=== PATIENT | male | born 1960 | race Hispanic/Latino ===

== ENCOUNTER 2024-06-29 08:57 | Emergency (ER) | payer MEDICARE, SELFPAY ==
--- NOTE | ~2024-06-29 | CT_ITS ---
CT abd pelvis lumbar wo con Ordering provider: Radha Martin PA-C History: 64 years Male with . sylvester flank pain, r/o stone . Comparison: None. Technique: CT abdomen and pelvis without IV and without oral contrast. Automated exposure control and iterative reconstruction technique were employed. The dose-length product was 1053.42 mGy-cm. Findings: VISUALIZED LOWER CHEST: Dependent atelectatic changes. UPPER ABDOMINAL ORGANS: Liver: Normal. Gallbladder: Normal. Spleen: Normal. Stomach/duodenum: Normal. Pancreas: Normal. Adrenals: Normal. Kidneys: Normal. PELVIC ORGANS: The bladder is normal. Enlarged prostate with calcifications. BOWEL AND MESENTERY: Colon: No evidence of diverticulitis. Fecal material is seen in the right side of the colon. Normal a ppendix. Small Bowel: Normal. No obstruction. Peritoneum/mesentery: No free air or free fluid. No mesenteric lymphadenopathy. Calcification seen an terior to the urinary bladder which may be a lymph nodes RETROPERITONEUM: Mild atheromatous disease of the abdominal aorta. No retroperitoneal lymphadenopat hy. MUSCULOSKELETAL: Superficial soft tissues: The superficial soft tissues are normal. Bones: Hypodensity in the left intertrochanteric area most likely a cyst. Follow-up advised. Hemangio ma T 10. Age appropriate degenerative changes of the spine. Bilateral sacroiliacs. IMPRESSION: 1. No evidence of appendicitis, diverticulitis or intestinal. CT abd pelvis lumbar wo con Ordering provider: Radha Martin PA-C History: 64 years Male with . sylvester flank pain, r/o stone . Comparison: None. Technique: CT lumbar spine without contrast. Automated exposure control and iterative reconstruction technique were employed. The dose-length product was 1053.42 mGy-cm. FINDINGS: VERTEBRAE: Loss of anterior height of T12 and L1 most likely chronic. Otherwise, Normal height and al ignment. No subluxation or visible acute fracture. Degenerative changes of the spine. DISC SPACES: Well maintained. T12-L1: No stenosis. L1-L2: No stenosis. L2-L3: No stenosis. L3-L4: Mild spinal canal stenosis secondary to broad based disc bulge, facet arthropathy, and ligamen eh flavum hypertrophy. Narrowing of the foramina with root compression. L4-L5: Mild spinal canal stenosis secondary to broad based disc bulge, facet arthropathy, and ligame ntum flavum hypertrophy. Bilateral narrowing of the foramina with root compression. Bilateral facet j oint disease. L5-S1: No stenosis. PARASPINOUS SOFT TISSUES: Mild atheromatous disease of the abdominal aorta. Bilateral sacroiliitis. IMPRESSION: No evidence of acute osseous abnormality. Reviewed, dictated and finalized at location A. IMPRESSION: 1. No evidence of appendicitis, diverticulitis or intestinal. CT abd pelvis lumbar wo con Ordering provider: Radha Martin PA-C History: 64 years Male with . sylvester flank pain, r/o stone . Comparison: None. Technique: CT lumbar spine without contrast. Automated exposure control and it erative reconstruction technique were employed. The dose-length product was 105 3.42 mGy-cm. FINDINGS: VERTEBRAE: Loss of anterior height of T12 and L1 most likely chronic. Otherwise , Normal height and alignment. No subluxation or visible acute fracture. Degene rative changes of the spine. DISC SPACES: Well maintained. T12-L1: No stenosis. L1-L2: No stenosis. L2-L3: No stenosis. L3-L4: Mild spinal canal stenosis secondary to broad based disc bulge, facet ar thropathy, and ligamentum flavum hypertrophy. Narrowing of the foramina with ro ot compression. L4-L5: Mild spinal canal stenosis secondary to broad based disc bulge, facet a rthropathy, and ligamentum flavum hypertrophy. Bilateral narrowing of the dilip geena with root compression. Bilateral facet joint disease. L5-S1: No stenosis. PARASPINOUS SOFT TISSUES: Mild atheromatous disease of the abdominal aorta. Bilateral sacroiliitis.
[2024-06-29 09:21] VITALS: BP 123/61; PULSE 50; RESP 16; TEMP 36.3; O2SAT 100
--- NOTE | 2024-06-29 10:57 | ED.BACK ---
HPI - Back Pain/Injury General Chief Complaint: Back Pain/Injury Stated Complaint: BACK PAIN Time Seen by Provider: 06/29/24 10:46 Source: patient and family Mode of arrival: ambulatory Limitations: no limitations and language barrier History of Present Illness HPI Narrative: Patient is a 64-year-old male who presents the ED with report of low back pain. Patient is primarily Ecuadorean-speaking. Daughter at bedside assisted in translation. 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 He has since developed pain throughout his low back since then, worse on the R side, occasionally radiates down his RLE. Worse with movement. Has been taking Tylenol and Ibuprofen at home w/o much improvement. denies radiation of pain into scrotum or abdomen. Denies numbness or weakness of lower extremity, saddle anesthesia, bowel or bladder incontinence. Related Data Allergies Allergy/AdvReac Type Severity Reaction Status Date / Time No Known Allergies Allergy Verified 06/29/24 09:02 Review of Systems Review of Systems: All systems reviewed & are unremarkable except as noted in HPI. All systems reviewed & are unremarkable except as noted in HPI and below Exam Narrative: GENERAL: Well appearing, obese with BMI of 36.3, non-toxic, in mild acute distress due to pain. HEAD: Normocephalic, atraumatic. RESPIRATORY: Airway patent, respirations nonlabored. Clear to auscultation bilaterally, no rales, rhonchi, wheezing. CARDIOVASCULAR: Bradycardia with regular rhythm without murmurs, rubs, or gallops. ABDOMINAL: Soft, no tenderness throughout abdomen, nondistended. Normoactive BS. MUSCULOSKELETAL: Moves all extremities. No gross deformities. Tenderness to palpation throughout lower midline lumbar spine extending into right paraspinal musculature/R SI region. Sensation intact. No palpable deformities. SKIN: Warm, dry, normal color. NEURO: A&O X3. Speech clear. Cranial nerves II-XII grossly intact. Steady gait. No ataxic movements. PSYCHIATRIC: Appropriate mood and affect. Normal interaction. Course Vital Signs Vital signs: Vital Signs Temperature 97.4 F L 06/29/24 09:21 Pulse Rate 50 L 06/29/24 09:21 Respiratory Rate 16 06/29/24 09:21 Blood Pressure 123/61 06/29/24 09:21 Pulse Oximetry 100 06/29/24 09:21 Oxygen Delivery Room Air 06/29/24 09:21 Temperature 97.4 F L 06/29/24 09:21 Pulse Rate 47 L 06/29/24 14:20 Respiratory Rate 16 06/29/24 14:20 Blood Pressure 107/82 06/29/24 14:20 Pulse Oximetry 100 06/29/24 14:20 Oxygen Delivery Room Air 06/29/24 09:21 MDM - Back Pain/Injury MDM Narrative Medical decision making narrative: Patient?s pain is positional and localized to paraspinal muscles without signs of cord compression or cauda equina. Normal neurologic exams. No red flag symptoms. No fever noted and no significant risk factors for osteomyelitis or spinal epidural abscess. No symptoms or signs to suggest pain is referred from abdominal or source. CT scan of abdomen/ pelvis /lumbar spine without acute abnormalities. No fracture. No intra-abdominal findings. Suspect musculoskeletal etiology. Patient is feeling much better with supportive therapy in the ED. Patient ambulates with a steady gait and is felt to be a reasonable candidate for continued outpatient management. will prescribe lidocaine patches/muscle relaxers for home use, advised to continue Tylenol/ibuprofen. Patient was noted to be bradycardic in the ED. Initial heart rate upon arrival was in the 50s. Patient did janusz down to 37 at its lowest point. EKG was obtained and showing sinus bradycardia. No evidence of heart block. Patient is asymptomatic with this. He denies ever being told his heart rate has been low. He was seen by his primary care doctor 1 month ago at which point he states everything was normal. He denies any dizziness, lightheadedness, chest pain, shortness of breath, vision changes, near syncopal or syncopal episodes. He is not on any beta-blockers. Discussed case with patient's PCP's office nurse, will f/u with patient within the next 2 weeks. Discussed case with Mariana Ortiz NP Cardiology, will call patient to make close f/u appointment. Recommended to check TSH. Basic laboratory studies were obtained and unremarkable. Minimal anemia. Stable electrolytes and magnesium. TSH is within normal limits. Patient was ambulated throughout the ED and heart rate did increase some with exertion. He continued to be asymptomatic while ambulating. No dizziness, lightheadedness, near syncope. He was given strict return precautions regarding back pain and bradycardia. He is in agreement with plan and voiced understanding of all return precautions. Discharged in stable condition. Medical Records Attestation: I reviewed the patient's medical records. Lab Data Attestation: I reviewed the patient's lab results. 06/29/24 12:56 06/29/24 12:56 Labs: Lab Results 06/29/24 Range/Units 12:56 WBC 9.6 (4.5-10.0) K/mm3 RBC 4.02 L (4.6-6.20) M/mm3 Hgb 12.1 L (14.0-18.0) g/dL Hct 35.9 L (42.0-52.0) % MCV 89.3 (80-100) fl MCH 30.1 (26-34) pg MCHC 33.7 (32-36) g/dl RDW 14.4 (11.5-14.5) % Plt Count 220 (150-375) k/mm3 MPV 11.1 H (7.4-10.4) fl Immature Gran % (Auto) 0.3 (0-0.5) % Neut % (Auto) 70.5 (45.5-73.1) % Lymph % (Auto) 24.3 (18.3-44.2) % [place] % (Auto) 4.0 (2.6-8.5) % Eos % (Auto) 0.7 (0-4.4) % Baso % (Auto) 0.2 (0.2-1.2) % Lymph # (Auto) 2.34 (0.9-3.2) K/mm3 [place] # (Auto) 0.4 (0.1-0.6) K/mm3 Eos # (Auto) 0.1 (0-0.3) K/mm3 Baso # (Auto) 0.0 (0.0-0.1) K/mm3 Abs Immat Gran (auto) 0.03 (0.00-0.031) K/mm3 Absolute Neuts (auto) 6.8 H (1.3-6.7) K/mm3 Absolute Nucleated RBC 0.000 (0.0-0.012) K/mm3 Nucleated RBC % 0.0 (0.0-0.2) % Sodium 138 (137-145) mmol/L Potassium 4.0 (3.4-5.0) mmol/L Chloride 106 (98-107) mmol/L Carbon Dioxide 22 (22-30) mmol/L Anion Gap 10 (4-12) mmol/L BUN 18 (9-20) mg/dL Creatinine 0.80 (0.7-1.3) mg/dL Estim Creat Clear Calc 88 ml/min Estimated GFR > 60 (59 - ) Glucose 108 (65-110) mg/dL Calcium 9.3 (8.4-10.2) mg/dL Magnesium 2.0 (1.6-2.3) mg/dL Total Bilirubin 0.3 (0.2-1.3) mg/dL AST 23 (17-59) U/L ALT 22 (6-50) U/L Alkaline Phosphatase 61 (38-126) U/L Total Protein 8.0 (6.3-8.2) g/dL Albumin 4.6 (3.5-5.1) g/dL TSH 0.794 (0.465-4.680) uIU/mL Imaging Data Attestation: I personally reviewed and interpreted this imaging study as follows: Radiologist's impression: ITS Impressions Miscellaneous CT Procedure 06/29/24 11:47 IMPRESSION: 1. No evidence of appendicitis, diverticulitis or intestinal. CT abd pelvis lumbar wo con Ordering provider: Radha Martin PA-C History: 64 years Male with . sylvester flank pain, r/o stone . Comparison: None. Technique: CT lumbar spine without contrast. Automated exposure control and iterative reconstruction technique were employed. The dose-length product was 1053.42 mGy-cm. FINDINGS: VERTEBRAE: Loss of anterior height of T12 and L1 most likely chronic. Otherwise, Normal height and alignment. No subluxation or visible acute fracture. Degenerative changes of the spine. DISC SPACES: Well maintained. T12-L1: No stenosis. L1-L2: No stenosis. L2-L3: No stenosis. L3-L4: Mild spinal canal stenosis secondary to broad based disc bulge, facet arthropathy, and ligamentum flavum hypertrophy. Narrowing of the foramina with root compression. L4-L5: Mild spinal canal stenosis secondary to broad based disc bulge, facet arthropathy, and ligamentum flavum hypertrophy. Bilateral narrowing of the foramina with root compression. Bilateral facet joint disease. L5-S1: No stenosis. PARASPINOUS SOFT TISSUES: Mild atheromatous disease of the abdominal aorta. Bilateral sacroiliitis. IMPRESSION: No evidence of acute osseous abnormality. ECG Data EKG #1: Attestation: I personally reviewed and interpreted this ECG as follows: ECG completion date: 06/29/24 ECG completion time: 11:29 EKG Interpretation: bradycardia (37), sinus rhythm, non-specific ST changes and other ([place] 207) Discharge Plan Discharge Clinical Impression: Bradycardia Strain of lumbar region Qualifiers: Encounter type: initial encounter Qualified Code(s): S39.012A - Strain of muscle, fascia and tendon of lower back, initial encounter Patient Disposition: Home, Self-Care Condition: Stable Instructions: Antibiotic Form, Acute Low Back Pain (ED), Bradycardia (ED), Lower Back Exercises (ED) Additional Instructions: Continue Tylenol and Ibuprofen as needed for pain. You may use ice/heat, lidocaine patches to area of pain. Take muscle relaxers as needed and prescribed. Recommend taking these at night as they may cause sedation. Do not drive, operate heavy machinery, drink alcohol while on muscle relaxers as this may cause further sedation. Return to the ED if you experience worsening or severe pain, recurrent injury, numbness in groin or legs, going to the bathroom without meaning to, unable to keep down food or drink, or any other symptoms of concern. Your heart rate was found to be low today. Call your primary care doctor today to make close follow-up appointment for this. Also recommend follow-up with Cardiology. Their office should be contacting you to make an appointment. If you do not hear from them within the next couple of days, contact their office yourself. Return to the ED if you experience dizziness, lightheadedness, passing out, vision changes, chest pain, shortness of breath. Prescriptions: New lidocaine 5 % adhesive patch,medicated 1 patch topical DAILY Qty: 15 0RF Rx Instructions: leave on most painful area for up to 12 hrs cyclobenzaprine 5 mg tablet 5 mg PO TID PRN (Reason: muscle spasm) Qty: 15 0RF Follow-up/Referrals: Priscilla,ROCÍO Reina [Primary Care Provider] - Rinku Gonzalez MD [Physician] - (CARDIOLOGY) Time of Disposition: 14:04
[2024-06-29] MEDS: ACETAMINOPHEN 500 MG TABLET 1000 MG PO (11:16)
[2024-06-29] MEDS: KETOROLAC (*BKC) 60 MG/2 ML VIAL IM (11:16)
[2024-06-29] MEDS: methylPREDNISolone SOD SUCC 125 MG VIAL IM (11:16)
--- NOTE | 2024-06-29 11:24 | ECG_ITS ---
Test Date: 2024-06-29 11:29:03 Measurements Intervals [place] Rate: 37 P: 55 PA: 207 QRS: 23 QRSD: 114 T: 12 QT: 442 QTc: 348 Interpretive Statements SLOW SINUS BRADYCARDIA BORDERLINE AV CONDUCTION DELAY INTRAVENTRICULAR CONDUCTION DELAY MINIMAL Q WAVES- HIGH LATERAL LEADS ABNORMAL ECG No previous ECG available for comparison Electronically Signed On 06-29-2024 11:30:43 CDT by Cheng Gerber D.O.
[2024-06-29 11:29] VITALS: BP 110/63; PULSE 37; RESP 16; O2SAT 100
--- NOTE | 2024-06-29 11:42 | PC.NURSE ---
Md Almanza notified of pt bradycardia. EKG completed. Pt is asymptomatic. Daughter at bedside reports no cardiac history. Muscle relaxer held at this time.
[2024-06-29 12:30] VITALS: PULSE 42; RESP 16; O2SAT 100
--- NOTE | 2024-06-29 12:37 | PC.NURSE ---
HR 42 at rest, HR 50 with ambulation. 02 remained 100%.
[2024-06-29 12:40] VITALS: PULSE 50; RESP 16; O2SAT 100
[2024-06-29 13:02] LABS: Basophils Percent Auto 0.2 % (0.2-1.2); Eosinophils Absolute Auto 0.1 K/mm3 (0-0.3); Eosinophils Percent Auto 0.7 % (0-4.4); Hematocrit 35.9 % (42.0-52.0); Hemoglobin 12.1 g/dL (14.0-18.0); Immature Granulocyte Absolute 0.03 K/mm3 (0.00-0.031); Immature Granulocyte Percent A 0.3 % (0-0.5); Lymphocytes Absolute Auto 2.34 K/mm3 (0.9-3.2); Lymphocytes Percent Auto 24.3 % (18.3-44.2); Mean Corpuscular HGB Conc 33.7 g/dl (32-36); Mean Corpuscular Hemoglobin 30.1 pg (26-34); Mean Corpuscular Volume 89.3 fl (80-100); Mean Platelet Volume 11.1 fl (7.4-10.4); Monocytes Absolute Auto 0.4 K/mm3 (0.1-0.6); Neutrophils Absolute Auto 6.8 K/mm3 (1.3-6.7); Neutrophils Percent Auto 70.5 % (45.5-73.1); Platelet Count Result 220 k/mm3 (150-375); Red Blood Count 4.02 M/mm3 (4.6-6.20); Red Cell Distribution Width 14.4 % (11.5-14.5); White Blood Count 9.6 K/mm3 (4.5-10.0)
[2024-06-29 13:18] LABS: Alanine Aminotransferase 22 U/L (6-50); Albumin Level 4.6 g/dL (3.5-5.1); Alkaline Phosphatase 61 U/L (38-126); Anion Gap 10 mmol/L (4-12); Aspartate Amino Transferase 23 U/L (17-59); Bilirubin,Total 0.3 mg/dL (0.2-1.3); Blood Urea Nitrogen 18 mg/dL (9-20); Calcium 9.3 mg/dL (8.4-10.2); Carbon Dioxide 22 mmol/L (22-30); Chloride 106 mmol/L (98-107); Estimated CRCL calculation 88 ml/min; Estimated Glomerular Filt Rate > 60; Glucose 108 mg/dL (65-110); Sodium 138 mmol/L (137-145)
[2024-06-29 13:48] LABS: Thyroid Stimulating Hormone 0.794 uIU/mL (0.465-4.680)
[2024-06-29 14:20] VITALS: BP 107/82; PULSE 47; RESP 16; O2SAT 100
== END 2024-06-29 14:28 | disposition home or self-care (01) ==
PROVIDERS: Emergency Provider Physician Assistant; PCP Registered Nurse
DX: S39.012A Strain of muscle, fascia and tendon of lower back, initial encounter (principal); R00.1 Bradycardia, unspecified; X58.XXXA Exposure to other specified factors, initial encounter
CPT/HCPCS: 36415; 72131; 74176; 80053; 83735; 84443; 85025; 93005; 96372; 99284; A9270; J1885; J2919

== ENCOUNTER 2025-03-29 08:21 | Outpatient (CLI) | payer MEDICARE, SELFPAY ==
--- NOTE | ~2025-03-29 | XR_ITS ---
EXAM/PROCEDURE: XR chest 2V - 03/29/2025 8:28 CDT HISTORY: 65 years old Male with Asymptomatic bradycardia TECHNIQUE: Two view(s) of the chest. COMPARISON: None available. FINDINGS: LUNGS/ PLEURA: No focal consolidation. No appreciable pneumothorax or large pleural effusion. HEART/ MEDIASTINUM: Heart appears normal in size. BONES: No acute osseous abnormality. OTHER: Visualized upper abdomen is unremarkable. IMPRESSION: No acute process. Reviewed, dictated and finalized at location A. IMPRESSION: No acute process.
== END 2025-03-29 08:22 | disposition home or self-care (01) ==
LOC: MICIMG 08:25
PROVIDERS: PCP Registered Nurse; Visit Provider Registered Nurse
DX: R00.1 Bradycardia, unspecified (principal)
CPT/HCPCS: 71046

== ENCOUNTER 2025-03-29 08:52 | Outpatient (CLI) | payer MEDICARE, SELFPAY ==
--- NOTE | 2025-03-29 | ECG_ITS ---
Test Date: 2025-03-29 09:12:13 Measurements Intervals [place] Rate: 50 P: 50 MO: 196 QRS: 36 QRSD: 95 T: 38 QT: 417 QTc: 382 Interpretive Statements SINUS BRADYCARDIA MINIMAL Q WAVES- HIGH LATERAL LEADS BORDERLINE ECG Compared to ECG 06/29/2024 11:29:03 HEART RATE HAS INCCREASED Electronically Signed On 03-29-2025 09:18:02 CDT by Cheng Gerber D.O.
== END 2025-03-29 08:53 | disposition home or self-care (01) ==
LOC: ANHCARD 08:57
PROVIDERS: PCP Registered Nurse; Visit Provider Registered Nurse
DX: R00.1 Bradycardia, unspecified (principal)
CPT/HCPCS: 93005; 99213; G0463

== ENCOUNTER 2025-03-29 09:32 | Emergency (ER) | payer MEDICARE, SELFPAY ==
--- NOTE | 2025-03-29 09:38 | ED.EYEPROB ---
HPI - Eye Problem General Chief complaint: Eye Problems Stated complaint: Swollen Left Eye Source: patient Mode of arrival: ambulatory Limitations: no limitations History of Present Illness HPI Narrative: Patient is a 65 year old male who presents to the clinic with complaints of his left eyelid being swollen x 4 days. He had tried to use warm compresses and over the counter eye medication, but has had minimal relief. Denies any vision changes, eye injury, foreign body sensation, fevers, body aches, nausea, shortness of breath. Related Data Home Medications ?Medication ?Instructions ?Recorded ?Confirmed ?Last Taken ?Type fenofibrate nanocrystallized 145 mg PO 03/29/25 Unknown History mg tablet finasteride 5 mg tablet mg 03/29/25 Unknown History gabapentin 300 mg capsule mg 03/29/25 Unknown History losartan 50 mg-hydrochlorothiazide tablet 03/29/25 Unknown History 12.5 mg tablet metformin 500 mg tablet mg 03/29/25 Unknown History pravastatin 80 mg tablet mg 03/29/25 Unknown History tamsulosin 0.4 mg capsule mg PO 03/29/25 Unknown History Allergies Allergy/AdvReac Type Severity Reaction Status Date / Time No Known Allergies Allergy Verified 03/29/25 09:44 Review of Systems Review of Systems: CONSTITUTIONAL: Denies body aches, fever, chills EYES: Endorses swelling, redness, and pain to L eyelid; No? FB sensation or photophobia.?Denies visual changes. ENT: Denies rhinorrhea, congestion, sore throat, or otalgia. CARDIOVASCULAR: Denies chest pain, palpitations RESPIRATORY: Denies cough or dyspnea. GASTROINTESTINAL: Denies abdominal pain, nausea, vomiting, or diarrhea. SKIN: Denies rash, itching, or wounds. MUSCULOSKELETAL: Denies back pain, joint pain, or myalgia. NEUROLOGIC: Denies headache, numbness, tingling, or weakness. All systems reviewed & are unremarkable except as noted in HPI and below PMFSH Comments At time of signature, I have reviewed and agree with nursing past medical, surgical, social and family history unless otherwise noted. Please see nursing chart for further information. There is no relevant family history pertinent to the presenting complaint. Exam Narrative: GENERAL: Well-appearing HEAD: Normocephalic, atraumatic. EYES: ?L eye lid edema and erythema c/w stye. EOMI. ?Lid eversion with no FB. ENT: Mucous membranes pink and moist. ?No rhinorrhea. ?TMs normal bilaterally. ?Throat normal. Uvula midline. CHEST: ?Clear to auscultation. HEART: Regular rate and rhythm. SKIN: Warm, dry, no rash. ?Normal skin turgor. NEURO: No focal deficits. Alert and oriented x3 PSYCH: ?Normal affect. Course Course Level of Care: Express Care Visit Vital Signs Vital signs: Reviewed MDM - Eye Problem MDM Narrative Medical decision making narrative: Discussed physical exam findings. Polymyxin prescription given. Advised supportive measures and signs/symptoms to go to the ER. Pt is appropriate for outpt treatment and follow up. Differential Diagnosis Differential diagnosis: Likely conjunctivitis and other (hordeolum) Critical Care Time Critical Care Time Critical Care Time: No Discharge Plan Discharge Clinical Impression: Hordeolum Qualifiers: Hordeolum type: externum Laterality: left Eyelid: upper Qualified Code(s): H00.014 - Hordeolum externum left upper eyelid Patient Disposition: Home Condition: Stable Instructions: Jessika Chaney (ED) Additional Instructions: Apply warm, moist compresses on the affected area frequently (for 5 to 10 minutes three to five times per day) in order to help with drainage. Massage and gentle wiping of the affected eyelid after the warm compress can also help with drainage. You can use baby shampoo to wash the eye area Avoid wearing eye makeup or contact lenses Take medication as directed. If the lesion does not improve within one to two weeks, please follow up with an summer babysitter for further management or go to ER. Patient Language: [place] Island[place] Prescriptions: New polymyxin B sulf-trimethoprim 10,000 unit- 1 mg/mL drops 1 drp LEFT EYE Q3H 7 Days Qty: 10 0RF Rx Instructions: while awake; do not exceed 6 doses in 24 hours No Action metformin 500 mg tablet pravastatin 80 mg tablet tamsulosin 0.4 mg capsule PO gabapentin 300 mg capsule losartan-hydrochlorothiazide 50-12.5 mg tablet finasteride 5 mg tablet fenofibrate nanocrystallized 145 mg tablet PO lidocaine 5 % adhesive patch,medicated 1 patch topical DAILY Qty: 15 0RF Rx Instructions: leave on most painful area for up to 12 hrs Follow-up/Referrals: PHYSICIAN,OPTICAL GLASS INSPECTOR [Primary Care Provider] - Time of Disposition: 09:56
[2025-03-29 09:45] VITALS: BP 112/70; PULSE 57; RESP 16; TEMP 36.4; O2SAT 100
== END 2025-03-29 10:06 | disposition home or self-care (01) ==
DX: H00.014 Hordeolum externum left upper eyelid (principal); I10 Essential (primary) hypertension; E78.00 Pure hypercholesterolemia, unspecified; N40.0 Benign prostatic hyperplasia without lower urinary tract symptoms; R73.03 Prediabetes
CPT/HCPCS: 99213; G0463

== ENCOUNTER 2025-04-17 09:26 | Outpatient (CLI) | payer MEDICARE, SELFPAY ==
--- OUTSIDE RECORDS SUMMARY | 2025-04-17 09:47 | XMS_ITS | Clinical Summary ---
Author Organization [facility] Address [address] [place] [address] Care Team Providers Care Annual Giving Manager Name Role Phone Unavailable Primary Care Provider Unavailabl e Source Comments [facility],non-owned Affiliates and Associated Physician Practices is amultiple site organization consisting of ambulatory clinics and hospital sitesin [place], [place], [place] and [place]. This disclosure is being madepursuant to the Care Everywhere program and may not contain all information available regarding this patient. Last updated 18.[facility] [employer] Social History Tobacco Use Types Packs/Day Years Used Date Smoking Tobacco: Never Assessed Sex and Gender Information Value Date Recorded Sex Assigned at Not on file Legal Sex Male 9:42 AM PRODUCT SAFETY ENGINEER Gender Identity Not on file Sexual Orientation Not on file Last Filed Vital Signs Vital Sign Reading Time Taken Comments Blood Pressure 134/82 09/14/2010 9:54 AM PRODUCT SAFETY ENGINEER Pulse 84 09/14/2010 9:54 AM PRODUCT SAFETY ENGINEER Temperature 36.4 C (97.5 F) 09/14/2010 7:46 AM PRODUCT SAFETY ENGINEER Respiratory Rate 22 09/14/2010 9:54 AM PRODUCT SAFETY ENGINEER Oxygen Saturation 100% 09/14/2010 9:54 AM PRODUCT SAFETY ENGINEER Inhaled Oxygen Concentration - - Weight 113.4 kg (250 lb) 09/14/2010 7:46 AM PRODUCT SAFETY ENGINEER Height 172.7 cm (5' 8) 09/14/2010 7:46 AM PRODUCT SAFETY ENGINEER Body Mass Index 38.01 09/14/2010 7:46 AM PRODUCT SAFETY ENGINEER Plan of Treatment Health Maintenance Due Date Last Done Comments COLOGUARD (AGES 45-75) - COL ON CA SCREENING 1958 COLON MONITORING 1958 COLONOSCOPY - COLON CA SCREENING 1958 CT COLONOGRAPHY - COLON CA SCREENING 1958 Colorectal Cancer Screening 1958 FIT - COLON CA SCREENING 1958 FLEX SIG - COLON CA SCREENING 1958 LIPID TESTING 1958 HEPATITIS C SCREENING 02/11/1976 DTAP/TDAP/TD VACCINES (1 - Tdap) 1977 PNEUMOCOCCAL VACCINE 50+ (1 of 1 - PCV) 02/16/2008 ZOSTER VACCINE (1 of 2) 02/16/2008 COVID-19 VACCINE (1 - 2023-2 5 season) 2024 DEPRESSION SCREENING 10/04/2024 INFLUENZA VACCINE (#1) 2025 Respiratory Syncytial Virus (RSV) Vaccine Pt: or over 60 yrs (1 - 1-dose 75+ series) 2033 HEPATITIS B VACCINE Aged Out No longe r eligible based on patient's age to complete this topic HIB VACCINE Aged Out No longer eligi ble based on patient's age to complete this topic HPV VACCINE Aged Out No longer eligi ble based on patient's age to complete this topic MENINGOCOCCAL (Group B) VACC INE SHARED DECISION-MAKING Aged Out No longer eligibl e based on patient's age to complete this topic MENINGOCOCCAL GROUPS A/C/Y/W VACCINE Aged Out No longer eligible b ased on patient's age to complete this topic
--- OUTSIDE RECORDS SUMMARY | 2025-04-17 09:47 | XMS_ITS | Clinical Summary ---
Author Organization [facility] Care Team Providers Care Elevator Builder Name Role Phone Unavailable Primary Care Provider Unavailabl e Social History Tobacco Use Types Packs/Day Years Used Date Smoking Tobacco: Never Assessed Sex and Gender Information Value Date Recorded Sex Assigned at Not on file Legal Sex Male 12:15 AM CDT Gender Identity Not on file Sexual Orientation Not on file Plan of Treatment Health Maintenance Due Date Last Done Comments Hepatitis C Virus (HCV) Screening 1960 Cologuard 2003 Colonoscopy 2003 Colorectal Cancer Screening 2003 Immunochemical Fecal Occult Blood 2003 Zoster Immunization (1 of 2) 02/16/2008 SARS-COV-2 Immunization ( season) 2024 04/24/2022, 09/12/2021, 01/04/2021, Additional history exists Influenza Immunization (#1) 06/04/202510/2020, 07/12/2020, 07/31/2019, Additional history exists Pneumococcal Immunization (50+ years) (3 of 3 - PCV20 or PCV21) 09/12/2026 09/12/2021, 08/24/2011 Respiratory Syncytial Virus (RSV) Immunization (Adult) (1 - 1-dose 75+ series) 2033 DTaP/Tdap/Td Immunization Discontinued 02/01/2019, 04/2015 TdaP Immunization Completed 02/01/2019, 10/10/2014 Pneumococcal Immunization Combined Discontinued 09/12/2021, 08/24/2011 Hepatitis B Immunization Aged Out No longer eligible based on patient's age to complete this topic Human Papillomavirus (HPV) Immunization Aged Out No longer eligible based on patient's age to complete this topic Meningococcal Immunization (ACWY) Aged Out No longer eligible based on patient's age to complete this topic Rotavirus Immunization Aged Out No lo nger eligible based on patient's age to complete this topic
--- NOTE | 2025-04-27 11:30 | WPDHOLTEREM ---
Holter/Event Monitor Holter/Event Monitor Date of procedure: 04/17/25 Holter/Event Procedure: 3-7 Day Holter Monitor Indications: Bradycardia Conclusion: 1. 3 days holter monitor on 04/17/25. 2. Underlying rhythm is sinus rhythm. HR range 36-107 bpm; average HR 52 bp. HR at 36 bpm was on 04/18/25 at 3:48 am. 3. There are rare premature supraventricular complexes, rare supraventricular couplets, and rare supraventricular triplets. No supraventricular tachycardia. 4. There are rare premature ventricular complexes. No ventricular tachycardia. 5. No significant pauses greater than 3 seconds. 6. Patient reports 1 episode of symptom of chest pain which demonstrates sinus bradycardia at 55 bpm.
== END 2025-04-17 09:27 | disposition home or self-care (01) ==
PROVIDERS: Visit Provider Registered Nurse
DX: R00.1 Bradycardia, unspecified (principal)
CPT/HCPCS: 93242